=== PATIENT | male | born 1980 | race African-American/Black ===

== ENCOUNTER 2017-06-10 11:37 | Emergency (ER) | payer OTHER, SELFPAY ==
--- NOTE | 2017-06-10 13:04 | RAD ---
PORTABLE CHEST 1 VIEW: DATE: 06/10/17. TIME: 12:10 p.m. HISTORY: Syncope. FINDINGS: The heart size is normal. No focal areas of consolidation, pneumothorax, or pleural effusions are se en. IMPRESSION: No radiographic evidence of acute cardiopulmonary process. POS: [facility]
[2017-06-10 13:06] LABS: Hemoglobin 14.1 g/dL (14.0-18.0); Mean Corpuscular HGB CONC 32.4 g/dL (32.0-36.0); Mean Corpuscular Hemoglobin 23.9 pg (27.0-31.0); Mean Corpuscular Volume 73.7 fl (80.0-94.0); Mean Platelet Volume 8.6 fL (7.4-10.4); Platelet Count 198 thou/uL (130-400); Red Blood Cell (RBC) Count 5.91 mill/uL (4.70-6.10); White Blood Cell (WBC) Count 9.3 thou/uL (4.8-10.8)
[2017-06-10 13:30] LABS: ALT (SGPT) 55 U/L (8-55); AST (SGOT) 40 U/L (5-34); Albumin 4.3 g/dL (3.5-5.0); Alkaline Phosphatase 59 U/L (40-150); Anion Gap 12 mmol/L (10-20); BUN (Urea Nitrogen) 14 mg/dL (8.9-20.6); CK (CPK) 1583 U/L (30-200); Calc. Creatinine Clearance 0 mL/min (70-130); Calcium 9.5 mg/dL (7.8-10.44); Carbon Dioxide 24 mmol/L (22-29); Chloride 108 mmol/L (98-107); Estimated GFR-MDRD 73; Globulin 2.5 g/dL (2.4-3.5); Glucose 100 mg/dL (70-105); Lipase 6 U/L (8-78); Potassium 4.1 mmol/L (3.5-5.1); Protein, Total 6.8 g/dL (6.0-8.3); Sodium 140 mmol/L (136-145); Troponin I Less than 0.010 ng/mL (< 0.028)
[2017-06-10 13:31] LABS: Acetaminophen Less than 6.0 mcg/mL (10.0-30.0); Alcohol Less than 10 mg/dL (Less than 10); Salicylate Less than 8.0 mg/dL (15.0-30.0)
[2017-06-10 13:34] LABS: CKMB 16.9 ng/mL (0-6.6)
[2017-06-10 13:35] LABS: #Basophils 0.1 thou/uL (0.0-0.2); #Eosinphils 0.1 thou/uL (0.0-0.7); #Lymphocytes 2.4 thou/uL (1.20-3.40); #Monocytes 0.8 thou/uL (0.11-0.59); #Neutrophils 5.9 thou/uL (1.40-6.50); %Basophils 0.7 % (0.0-1.0); %Eosinophils 1.5 % (0.0-10.0); %Lymphocytes 25.8 % (21.0-51.0); %Monocytes 8.4 % (0.0-10.0); %Neutrophils 63.6 % (42.0-75.0); Hypochromia SLIGHT = 6-15 cells (100X) (0-5/hpf); MDiff Complete? YES; Microcytosis SLIGHT = 6-15 cells (100X) (0-5/hpf); PLT Morphology Comment Appears Adequate
[2017-06-10 13:57] LABS: Bilirubin Negative (Negative); Blood, Urine Negative (Negative); Clarity CLEAR (Clear); Glucose, Urine (Dipstick) Negative (Negative); Leukocyte Negative (Negative); Nitrite Negative (Negative); Protein, Urine (Dipstick) Trace mg/dL (Neg-Trace); Specific Gravity, Urine 1.031 (1.002-1.036)
[2017-06-10 14:16] LABS: Amphetamine Not Detected (NotDetected); Barbiturates Screen Not Detected (NotDetected); Benzodiazepine Screen Not Detected (NotDetected); Cocaine Metabolite Screen Detected (NotDetected); Medtox Control Line Valid? VALID (VALID); Medtox Reader # READER 1; Methadone Not Detected (NotDetected); Methamphetamine Not Detected (NotDetected); Opiate Screen Not Detected (NotDetected); Oxycodone Screen Not Detected (NotDetected); Phencyclidine (PCP) Detected (NotDetected); THC/Cannabinoid Screen Not Detected (NotDetected); Tricyclic Screen Not Detected (NotDetected)
--- NOTE | 2017-07-06 23:25 | EKG ---
Test Reason : NEAR SYNCOPE Blood Pressure : / mmHG Vent. Rate : 093 BPM Atrial Rate : 093 BPM P-R Int : 146 ms QRS Dur : 096 ms QT Int : 346 ms P-R-T Axes : 019 079 015 degrees QTc Int : 430 ms Normal sinus rhythm Normal ECG Confirmed by ROGELIO RON, ALF Baldwin ([id number]), editorial clerk JAIDA DALEY ([id number]) on 07/06/2017 11:24:59 PM Referred By: Confirmed By:ALF MERCADO MD
== END 2017-06-10 14:39 | disposition home or self-care (01) ==
LOC: ERS 11:37 → EDBD 11:37 → ERS 14:39
DX: B00.1 Herpesviral vesicular dermatitis (principal); F14.10 Cocaine abuse, uncomplicated; F16.10 Hallucinogen abuse, uncomplicated; F17.210 Nicotine dependence, cigarettes, uncomplicated; Z71.6 Tobacco abuse counseling
CPT/HCPCS: 71045; 80053; 80306; 80307; 81003; 82550; 82553; 83690; 83880; 84484; 85025; 93005; 96360; 99406

== ENCOUNTER 2017-06-11 19:32 | Emergency (ER) | payer OTHER | END 2017-06-11 20:35 | disposition home or self-care (01) | LOC: ERS 19:32 | DX: K14.6 Glossodynia (principal); F17.210 Nicotine dependence, cigarettes, uncomplicated | CPT/HCPCS: 99283 ==

== ENCOUNTER 2017-06-13 00:14 | Emergency (ER) | payer OTHER | END 2017-06-13 00:55 | disposition home or self-care (01) | LOC: ERS 00:14 | DX: B00.2 Herpesviral gingivostomatitis and pharyngotonsillitis (principal); F17.210 Nicotine dependence, cigarettes, uncomplicated | CPT/HCPCS: 99283 ==

== ENCOUNTER 2017-06-13 07:06 | Emergency (ER) | payer OTHER | END 2017-06-13 08:05 | disposition home or self-care (01) | LOC: ERS 07:06 | DX: M79.652 Pain in left thigh (principal); M79.651 Pain in right thigh; F17.210 Nicotine dependence, cigarettes, uncomplicated; F41.9 Anxiety disorder, unspecified | CPT/HCPCS: 99283 ==

== ENCOUNTER 2017-06-15 15:21 | Emergency (ER) | payer OTHER ==
[2017-06-15] MEDS ORDERED: Acetaminophen 500 MG TAB ONE (15:54)
== END 2017-06-15 17:11 | disposition home or self-care (01) ==
LOC: ERS 15:21
DX: G89.29 Other chronic pain (principal); M79.672 Pain in left foot; M79.671 Pain in right foot; F17.210 Nicotine dependence, cigarettes, uncomplicated; F41.9 Anxiety disorder, unspecified
CPT/HCPCS: 99283

== ENCOUNTER 2017-11-06 23:18 | Emergency (ER) | payer SELFPAY ==
[2017-11-06] MEDS ORDERED: Adacel (T-DAP) 0.5 ML VIAL ONE (23:38)
== END 2017-11-06 23:48 | disposition home or self-care (01) ==
LOC: ERS 23:18
DX: S91.112A Laceration without foreign body of left great toe without damage to nail, initial encounter (principal); F17.210 Nicotine dependence, cigarettes, uncomplicated; W22.8XXA Striking against or struck by other objects, initial encounter
CPT/HCPCS: 90471; 90715

== ENCOUNTER 2017-11-22 09:39 | Emergency (ER) | payer SELFPAY | END 2017-11-22 12:11 | disposition home or self-care (01) | LOC: ERS 09:39 | DX: B35.6 Tinea cruris (principal) | CPT/HCPCS: 99282 ==